=== PATIENT | male | born 1995 | race Caucasian/White ===

== ENCOUNTER → 2018-02-16 | Outpatient (CLI) | payer BC ==
[~2018-02-16] MED LIST: IBUP-1050 PO
--- NOTE | 2018-02-16 09:52 | DIAGNOSTIC IMAGING REPORT ---
R HAND MIN 3 VIEWS CLINICAL HISTORY: Right hand pain status post injury. COMPARISON: Right hand radiographs March 13, 2015. FINDINGS: No acute fracture is identified. There is a healed fracture of the right third metacarpal. Alignment of the right hand is anatomic. IMPRESSION: 1. No acute fracture or dislocation within the right hand. 2. Old, healed right third metacarpal fracture. Electronically signed by: Celestino Samano M.D. 02/16/2018 9:51 AM Dictated Date/Time: 02/16/2018 9:49 AM
== END | disposition home or self-care (01) ==
LOC: C.RDSM 14:40
PROVIDERS: ATTEND Family Medicine
DX: S69.91XD Unspecified injury of right wrist, hand and finger(s), subsequent encounter (principal); X58.XXXD Exposure to other specified factors, subsequent encounter